=== PATIENT | male | born 1975 | race Two or more races ===

== ENCOUNTER 2023-10-29 13:19 | Emergency (ER) | payer OTHER ==
[~2023-10-29] VITALS: Ht 185.4 cm; Wt 99.8 kg
[2023-10-29] MEDS ORDERED: ORPHENADRINE CITRATE 30 MG/ML AMPUL IM ONE (16:00)
[2023-10-29] MEDS ORDERED: KETOROLAC TROMETHAMINE 30 MG VIAL IM ONE (16:00)
[2023-10-29] MEDS ORDERED: TIZANIDINE HCL2 M1 PO (16:08)
[2023-10-29] MEDS ORDERED: CELEBREX200MG PO (16:08)
== END 2023-10-29 16:35 | disposition home or self-care (01) ==
LOC: ER 13:19
DX: M54.2 Cervicalgia (principal)